=== PATIENT | female | born 1965 | race Caucasian/White ===

== ENCOUNTER 2020-11-12 16:39 | Inpatient (IN) ==
[2020-11-12] MEDS ORDERED: ACETAMINOPHEN 325 MG TABLET PO PRN (17:07)
[2020-11-12] MEDS ORDERED: HYDROmorphone 2 MG/1 ML VIAL ONE (17:31)
[2020-11-12] MEDS ORDERED: HYDROmorphone 2 MG/1 ML VIAL IV STA (17:38)
[2020-11-12] MEDS: DEXTROSE 5% NACL 0.45% 1,000 ML IV SCH (18:26)
[2020-11-12] MEDS: PIPERACILLIN/TAZOBACTAM 3,375 MG in SODIUM CHLORIDE 0.9% 100 ML IV SCH (18:30)
[2020-11-12] MEDS: ONDANSETRON 4 MG/2 ML VIAL IV PRN (22:39)
[2020-11-13] MEDS: PIPERACILLIN/TAZOBACTAM 3,375 MG in SODIUM CHLORIDE 0.9% 100 ML IV SCH ×3 (01:54→18:08)
[2020-11-13] MEDS: DEXTROSE 5% NACL 0.45% 1,000 ML IV SCH ×3 (01:55→18:46)
[2020-11-13 06:33] LABS: Basophils % 0.2 % (0.0-0.8); Eosinophils # 0.1 10*3/uL (0.0-0.87); Eosinophils % 0.5 % (0.00-10.9); Hematocrit 43.4 VOL% (35.7-47.0); Hemoglobin 14.3 GM/DL (12.0-16.0); Immature Granulocytes % 0.4 %; Immature Granulocytes Absolute 0.05 #; Lymphocytes # 0.9 10*3/uL (1.4-4.0); Lymphocytes % 7.8 % (21.3-54.2); Mean Corpuscular HGB Conc 32.9 GM/DL (32-36); Mean Corpuscular Volume 94.6 FL (87-102); Mean Platelet Volume 11.2 FL (9.6-12.0); Monocytes % 6.7 % (1.7-12.7); Neutrophils % 84.4 % (38.7-73.9); Platelet Count 286 T/CUMM (130-400); Red Blood Count 4.59 MC/CUMM (3.8-5.5); Red Cell Distribution Width 13.5 % (9.3-17.3); White Blood Count 11.2 T/CUMM (4-12)
[2020-11-13 06:45] LABS: Calcium 8.7 MG/DL (8.5-10.1); Osmolality,Calculated 271.2 MOS/KG (273-304); Potassium 3.5 MMOL/L (3.5-5.1)
[2020-11-13] MEDS: PANTOPRAZOLE 40 MG TABLET PO SCH (09:22)
[2020-11-13] MEDS: ONDANSETRON 4 MG/2 ML VIAL IV PRN ×2 (13:44→19:26)
[2020-11-13] MEDS: KETOROLAC 15 MG/1 ML VIAL IV SCH ×2 (14:12→20:15)
[2020-11-13] MEDS: HYDROmorphone 2 MG/1 ML VIAL IV PRN (14:13)
[2020-11-13 14:40] LABS: Bilirubin,Urine Negative (Negative); Blood, Urine Negative (Negative); Glucose,Urine (UA) Negative (Negative); Ketones,Urine Negative (Negative); Nitrite,Urine Negative (Negative); Protein,Urine 30 MG/DL; RBC,Urine <1 /HPF (0-4); Squamous Epithelial Cell,Urine Occasional /HPF (0-10); Urine Appearance Slightly Hazy (Clear); Urine Color Amber (Yellow); Urine Specific Gravity 1.033 (1.001-1.035)
[2020-11-14] MEDS: PIPERACILLIN/TAZOBACTAM 3,375 MG in SODIUM CHLORIDE 0.9% 100 ML IV SCH (01:40)
[2020-11-14] MEDS: DEXTROSE 5% NACL 0.45% 1,000 ML IV SCH (01:40)
[2020-11-14] MEDS: KETOROLAC 15 MG/1 ML VIAL IV SCH ×2 (01:40→08:06)
[2020-11-14 06:42] LABS: Basophils % 0.3 % (0.0-0.8); Eosinophils # 0.1 10*3/uL (0.0-0.87); Eosinophils % 0.9 % (0.00-10.9); Hemoglobin 12.7 GM/DL (12.0-16.0); Immature Granulocytes % 0.4 %; Immature Granulocytes Absolute 0.05 #; Lymphocytes # 0.9 10*3/uL (1.4-4.0); Lymphocytes % 7.4 % (21.3-54.2); Mean Corpuscular HGB Conc 32.6 GM/DL (32-36); Mean Corpuscular Volume 95.1 FL (87-102); Mean Platelet Volume 10.9 FL (9.6-12.0); Monocytes % 9.5 % (1.7-12.7); Neutrophils % 81.5 % (38.7-73.9); Platelet Count 252 T/CUMM (130-400); Red Cell Distribution Width 13.2 % (9.3-17.3); White Blood Count 11.9 T/CUMM (4-12)
[2020-11-14 07:12] LABS: Calcium 8.6 MG/DL (8.5-10.1); Osmolality,Calculated 269.2 MOS/KG (273-304); Potassium 3.5 MMOL/L (3.5-5.1)
[2020-11-14 07:29] LABS: Anisocytosis 1+; Band Neutrophils 17 % (0-10); Lymphocytes 7 % (20-55); Platelet Estimate Normal; Segmented Neutrophils 62 % (50-85); Total Cells Counted 100
[2020-11-14] MEDS: PANTOPRAZOLE 40 MG TABLET PO SCH (08:06)
[2020-11-14] MEDS ORDERED: CEFUROXIME 500 MG TABLET PO SCH (09:00)
[2020-11-14] MEDS: HYDROmorphone 2 MG/1 ML VIAL IV PRN (10:14)
[2020-11-14 11:25] VITALS: BP 108/65
== END 2020-11-14 13:30 | disposition home or self-care (01) | DRG 392 ==
LOC: EDUNIT# → EDBD → N.ED 16:39 → N.EDINP 17:07 → N.3E 18:32
PROVIDERS: ADMIT Surgery; ATTEND Surgery

== ENCOUNTER 2020-11-15 14:02 | Inpatient (IN) ==
[2020-11-15] MEDS ORDERED: ACETAMINOPHEN 325 MG TABLET PO PRN (16:35)
[2020-11-15] MEDS ORDERED: PROMETHAZINE 25 MG/1 ML VIAL IM PRN (16:35)
[2020-11-15 17:04] LABS: Basophils % 0.2 % (0.0-0.8); Eosinophils # 0.2 10*3/uL (0.0-0.87); Eosinophils % 1.9 % (0.00-10.9); Hematocrit 39.6 VOL% (35.7-47.0); Hemoglobin 13.1 GM/DL (12.0-16.0); Immature Granulocytes % 0.6 %; Immature Granulocytes Absolute 0.07 #; Lymphocytes # 1.4 10*3/uL (1.4-4.0); Lymphocytes % 12.4 % (21.3-54.2); Mean Corpuscular HGB Conc 33.1 GM/DL (32-36); Mean Corpuscular Volume 93.2 FL (87-102); Monocytes % 8.3 % (1.7-12.7); Neutrophils % 76.6 % (38.7-73.9); Platelet Count 319 T/CUMM (130-400); Red Blood Count 4.25 MC/CUMM (3.8-5.5); Red Cell Distribution Width 13.1 % (9.3-17.3); White Blood Count 10.9 T/CUMM (4-12)
[2020-11-15 17:20] LABS: Calcium 8.7 MG/DL (8.5-10.1); Osmolality,Calculated 275.5 MOS/KG (273-304); Potassium 3.1 MMOL/L (3.5-5.1)
[2020-11-15] MEDS: PANTOPRAZOLE 40 MG TABLET PO SCH (17:37)
[2020-11-15] MEDS: LACTATED RINGERS 1,000 ML IV SCH (17:38)
[2020-11-15] MEDS: KETOROLAC 15 MG/1 ML VIAL IV SCH ×2 (17:42→23:07)
[2020-11-15] MEDS: ERTAPENEM 1,000 MG in SODIUM CHLORIDE 0.9% 100 ML IV SCH (17:51)
[2020-11-15] MEDS: HYDROmorphone 2 MG/1 ML VIAL IV PRN (20:36)
[2020-11-15] MEDS: ONDANSETRON 4 MG/2 ML VIAL IV PRN (20:36)
[2020-11-15] MEDS: POTASSIUM CHLORIDE 20 MEQ TABLET PO PRN (23:06)
[2020-11-16] MEDS: POTASSIUM CHLORIDE 20 MEQ TABLET PO PRN ×3 (01:04→05:06)
[2020-11-16] MEDS: LACTATED RINGERS 1,000 ML IV SCH ×3 (01:06→16:12)
[2020-11-16] MEDS: KETOROLAC 15 MG/1 ML VIAL IV SCH ×4 (05:07→21:49)
[2020-11-16 05:48] LABS: Basophils % 0.3 % (0.0-0.8); Eosinophils # 0.4 10*3/uL (0.0-0.87); Eosinophils % 3.5 % (0.00-10.9); Hematocrit 39.4 VOL% (35.7-47.0); Hemoglobin 12.8 GM/DL (12.0-16.0); Immature Granulocytes % 0.8 %; Immature Granulocytes Absolute 0.09 #; Lymphocytes # 1.7 10*3/uL (1.4-4.0); Lymphocytes % 15.6 % (21.3-54.2); Mean Corpuscular HGB Conc 32.5 GM/DL (32-36); Mean Corpuscular Volume 93.8 FL (87-102); Mean Platelet Volume 10.5 FL (9.6-12.0); Monocytes % 9.4 % (1.7-12.7); Neutrophils % 70.4 % (38.7-73.9); Platelet Count 330 T/CUMM (130-400); Red Cell Distribution Width 13.2 % (9.3-17.3); White Blood Count 10.6 T/CUMM (4-12)
[2020-11-16 06:04] LABS: Calcium 8.9 MG/DL (8.5-10.1); Osmolality,Calculated 272.7 MOS/KG (273-304); Potassium 3.4 MMOL/L (3.5-5.1)
[2020-11-16] MEDS: PANTOPRAZOLE 40 MG TABLET PO SCH (08:53)
[2020-11-16] MEDS: ENOXAPARIN 40 MG/0.4 ML SYRINGE SUBCUT SCH (08:53)
[2020-11-16] MEDS: HYDROmorphone 2 MG/1 ML VIAL IV PRN ×4 (09:01→22:34)
[2020-11-16] MEDS: ONDANSETRON 4 MG/2 ML VIAL IV PRN ×2 (13:12→18:30)
[2020-11-16] MEDS: ERTAPENEM 1,000 MG in SODIUM CHLORIDE 0.9% 100 ML IV SCH (17:15)
[2020-11-16] MEDS ORDERED: BENZOCAINE 20% SPRAY 57 GM CAN TOP ONE (19:45)
[2020-11-16] MEDS: PHENOL 1.4% THROAT SPRAY 177 ML BOTTLE PO PRN (22:53)
[2020-11-17] MEDS: LACTATED RINGERS 1,000 ML IV SCH ×3 (02:24→19:34)
[2020-11-17] MEDS: HYDROmorphone 2 MG/1 ML VIAL IV PRN ×4 (02:24→19:33)
[2020-11-17] MEDS: KETOROLAC 15 MG/1 ML VIAL IV SCH ×4 (05:07→22:17)
[2020-11-17 05:18] LABS: Basophils % 0.4 % (0.0-0.8); Eosinophils # 0.3 10*3/uL (0.0-0.87); Eosinophils % 3.2 % (0.00-10.9); Hematocrit 38.1 VOL% (35.7-47.0); Hemoglobin 12.6 GM/DL (12.0-16.0); Immature Granulocytes % 1.1 %; Immature Granulocytes Absolute 0.11 #; Lymphocytes # 1.4 10*3/uL (1.4-4.0); Lymphocytes % 14.3 % (21.3-54.2); Mean Corpuscular HGB Conc 33.1 GM/DL (32-36); Mean Corpuscular Volume 93.2 FL (87-102); Mean Platelet Volume 9.9 FL (9.6-12.0); Platelet Count 334 T/CUMM (130-400); Red Blood Count 4.09 MC/CUMM (3.8-5.5); Red Cell Distribution Width 13.2 % (9.3-17.3); White Blood Count 9.8 T/CUMM (4-12)
[2020-11-17 05:49] LABS: Calcium 8.7 MG/DL (8.5-10.1); Osmolality,Calculated 273.5 MOS/KG (273-304); Potassium 3.4 MMOL/L (3.5-5.1)
[2020-11-17] MEDS: ENOXAPARIN 40 MG/0.4 ML SYRINGE SUBCUT SCH (09:12)
[2020-11-17] MEDS: PANTOPRAZOLE 40 MG TABLET PO SCH (09:12)
[2020-11-17] MEDS: ONDANSETRON 4 MG/2 ML VIAL IV PRN ×2 (09:49→16:19)
[2020-11-17] MEDS: ERTAPENEM 1,000 MG in SODIUM CHLORIDE 0.9% 100 ML IV SCH (17:45)
[2020-11-18] MEDS: LACTATED RINGERS 1,000 ML IV SCH ×5 (02:16→21:55)
[2020-11-18] MEDS: HYDROmorphone 2 MG/1 ML VIAL IV PRN ×4 (02:32→20:21)
[2020-11-18] MEDS: KETOROLAC 15 MG/1 ML VIAL IV SCH ×4 (04:01→22:44)
[2020-11-18] MEDS: ENOXAPARIN 40 MG/0.4 ML SYRINGE SUBCUT SCH (09:59)
[2020-11-18] MEDS: PANTOPRAZOLE 40 MG TABLET PO SCH (10:11)
[2020-11-18] MEDS: POLYETHYLENE GLYCOL POWDER 17 GM PACK PO SCH (12:51)
[2020-11-18] MEDS: ERTAPENEM 1,000 MG in SODIUM CHLORIDE 0.9% 100 ML IV SCH (17:28)
[2020-11-18] MEDS: ONDANSETRON 4 MG/2 ML VIAL IV PRN (20:26)
[2020-11-19] MEDS: HYDROmorphone 2 MG/1 ML VIAL IV PRN (03:18)
[2020-11-19] MEDS: ONDANSETRON 4 MG/2 ML VIAL IV PRN (03:19)
[2020-11-19] MEDS: KETOROLAC 15 MG/1 ML VIAL IV SCH ×4 (05:37→22:02)
[2020-11-19 05:56] LABS: Basophils % 0.3 % (0.0-0.8); Eosinophils # 0.3 10*3/uL (0.0-0.87); Eosinophils % 2.8 % (0.00-10.9); Hematocrit 37.5 VOL% (35.7-47.0); Hemoglobin 12.2 GM/DL (12.0-16.0); Immature Granulocytes % 1.4 %; Immature Granulocytes Absolute 0.13 #; Lymphocytes % 11.5 % (21.3-54.2); Mean Corpuscular HGB Conc 32.5 GM/DL (32-36); Mean Platelet Volume 9.8 FL (9.6-12.0); Monocytes % 6.1 % (1.7-12.7); Neutrophils % 77.9 % (38.7-73.9); Platelet Count 413 T/CUMM (130-400); Red Blood Count 3.99 MC/CUMM (3.8-5.5); Red Cell Distribution Width 12.8 % (9.3-17.3)
[2020-11-19 06:23] LABS: Calcium 8.4 MG/DL (8.5-10.1); Osmolality,Calculated 275.4 MOS/KG (273-304); Potassium 3.6 MMOL/L (3.5-5.1)
[2020-11-19] MEDS: ENOXAPARIN 40 MG/0.4 ML SYRINGE SUBCUT SCH (09:14)
[2020-11-19] MEDS: PANTOPRAZOLE 40 MG TABLET PO SCH (09:28)
[2020-11-19] MEDS: LACTATED RINGERS 1,000 ML IV SCH ×3 (13:25→22:01)
[2020-11-19] MEDS: POLYETHYLENE GLYCOL POWDER 17 GM PACK PO SCH (15:55)
[2020-11-19] MEDS: ERTAPENEM 1,000 MG in SODIUM CHLORIDE 0.9% 100 ML IV SCH (17:50)
[2020-11-20] MEDS: KETOROLAC 15 MG/1 ML VIAL IV SCH ×2 (04:39→10:58)
[2020-11-20] MEDS: LACTATED RINGERS 1,000 ML IV SCH ×3 (07:26→17:56)
[2020-11-20] MEDS: PANTOPRAZOLE 40 MG TABLET PO SCH (08:55)
[2020-11-20] MEDS: ENOXAPARIN 40 MG/0.4 ML SYRINGE SUBCUT SCH (08:56)
[2020-11-20] MEDS: POLYETHYLENE GLYCOL POWDER 17 GM PACK PO SCH (11:42)
[2020-11-20] MEDS: ERTAPENEM 1,000 MG in SODIUM CHLORIDE 0.9% 100 ML IV SCH (17:27)
[2020-11-21] MEDS: LACTATED RINGERS 1,000 ML IV SCH ×2 (00:05→07:50)
[2020-11-21] MEDS: PANTOPRAZOLE 40 MG TABLET PO SCH (08:11)
[2020-11-21] MEDS: POLYETHYLENE GLYCOL POWDER 17 GM PACK PO SCH (08:11)
[2020-11-21] MEDS: ENOXAPARIN 40 MG/0.4 ML SYRINGE SUBCUT SCH (08:11)
[2020-11-21] MEDS: DEXT 5% NACL 0.45% KCL 40 MEQ 40 MEQ/1,000 ML BAG IV SCH ×3 (12:09→20:52)
[2020-11-21] MEDS: ERTAPENEM 1,000 MG in SODIUM CHLORIDE 0.9% 100 ML IV SCH (17:06)
[2020-11-22] MEDS: DEXT 5% NACL 0.45% KCL 40 MEQ 40 MEQ/1,000 ML BAG IV SCH ×4 (04:09→21:22)
[2020-11-22 05:19] LABS: Basophils # 0.1 10*3/uL (0.0-0.2); Basophils % 0.5 % (0.0-0.8); Eosinophils # 0.4 10*3/uL (0.0-0.87); Eosinophils % 3.9 % (0.00-10.9); Hematocrit 40.6 VOL% (35.7-47.0); Hemoglobin 13.5 GM/DL (12.0-16.0); Immature Granulocytes % 0.8 %; Immature Granulocytes Absolute 0.09 #; Lymphocytes # 1.4 10*3/uL (1.4-4.0); Lymphocytes % 12.7 % (21.3-54.2); Mean Corpuscular HGB Conc 33.3 GM/DL (32-36); Mean Corpuscular Volume 90.6 FL (87-102); Mean Platelet Volume 9.6 FL (9.6-12.0); Monocytes % 6.1 % (1.7-12.7); Platelet Count 442 T/CUMM (130-400); Red Blood Count 4.48 MC/CUMM (3.8-5.5); Red Cell Distribution Width 12.9 % (9.3-17.3)
[2020-11-22 05:32] LABS: Calcium 8.4 MG/DL (8.5-10.1); Osmolality,Calculated 277.4 MOS/KG (273-304); Potassium 3.4 MMOL/L (3.5-5.1)
[2020-11-22] MEDS: PANTOPRAZOLE 40 MG TABLET PO SCH (08:30)
[2020-11-22] MEDS: POLYETHYLENE GLYCOL POWDER 17 GM PACK PO SCH (08:30)
[2020-11-22] MEDS: ENOXAPARIN 40 MG/0.4 ML SYRINGE SUBCUT SCH (08:30)
[2020-11-22] MEDS: ERTAPENEM 1,000 MG in SODIUM CHLORIDE 0.9% 100 ML IV SCH (17:32)
[2020-11-23] MEDS: DEXT 5% NACL 0.45% KCL 40 MEQ 40 MEQ/1,000 ML BAG IV SCH ×2 (05:26→18:07)
[2020-11-23] MEDS: POLYETHYLENE GLYCOL POWDER 17 GM PACK PO SCH (08:42)
[2020-11-23] MEDS: PANTOPRAZOLE 40 MG TABLET PO SCH (08:42)
[2020-11-23] MEDS: ENOXAPARIN 40 MG/0.4 ML SYRINGE SUBCUT SCH (09:30)
[2020-11-23 10:06] LABS: INR 1.1; PT Patient Result 12.3 SECS (10.5-12.0)
[2020-11-23] MEDS: FAT EMULSION 20% 250 ML IV SCH (14:39)
[2020-11-23] MEDS: HYDROmorphone 2 MG/1 ML VIAL IV PRN ×2 (15:10→20:45)
[2020-11-23] MEDS: ONDANSETRON 4 MG/2 ML VIAL IV PRN ×2 (15:11→20:53)
[2020-11-23] MEDS: LACTATED RINGERS 1,000 ML IV SCH (16:59)
[2020-11-23] MEDS ORDERED: ZINC/COPPER/MANGANESE/SELENIUM 1 ML, MULTIVITAMIN INJ 10 ML in AMINO ACIDS/DEXT/LYTES 5... IV SCH (17:00)
[2020-11-23] MEDS: ERTAPENEM 1,000 MG in SODIUM CHLORIDE 0.9% 100 ML IV SCH (18:36)
[2020-11-24] MEDS: LACTATED RINGERS 1,000 ML IV SCH ×2 (04:06→15:13)
[2020-11-24] MEDS: HYDROmorphone 2 MG/1 ML VIAL IV PRN ×3 (07:24→20:32)
[2020-11-24] MEDS: ONDANSETRON 4 MG/2 ML VIAL IV PRN ×3 (07:30→20:32)
[2020-11-24 08:06] LABS: Calcium 8.7 MG/DL (8.5-10.1); Osmolality,Calculated 278.4 MOS/KG (273-304); Potassium 3.7 MMOL/L (3.5-5.1)
[2020-11-24] MEDS: ENOXAPARIN 40 MG/0.4 ML SYRINGE SUBCUT SCH (10:27)
[2020-11-24] MEDS: POLYETHYLENE GLYCOL POWDER 17 GM PACK PO SCH (10:29)
[2020-11-24] MEDS: PANTOPRAZOLE 40 MG TABLET PO SCH (10:30)
[2020-11-24] MEDS: PHENOL 1.4% THROAT SPRAY 177 ML BOTTLE PO PRN (14:31)
[2020-11-24] MEDS: ZINC/COPPER/MANGANESE/SELENIUM 1 ML, MULTIVITAMIN INJ 10 ML in AMINO ACIDS/DEXT/LYTES 5... IV SCH (16:49)
[2020-11-24] MEDS: ERTAPENEM 1,000 MG in SODIUM CHLORIDE 0.9% 100 ML IV SCH (18:25)
[2020-11-25] MEDS: LACTATED RINGERS 1,000 ML IV SCH (03:38)
[2020-11-25] MEDS: ONDANSETRON 4 MG/2 ML VIAL IV PRN (03:39)
[2020-11-25] MEDS: HYDROmorphone 2 MG/1 ML VIAL IV PRN (03:40)
[2020-11-25 06:29] LABS: Basophils % 0.5 % (0.0-0.8); Eosinophils # 0.4 10*3/uL (0.0-0.87); Eosinophils % 4.7 % (0.00-10.9); Hematocrit 39.6 VOL% (35.7-47.0); Hemoglobin 12.4 GM/DL (12.0-16.0); Immature Granulocytes % 0.5 %; Immature Granulocytes Absolute 0.04 #; Lymphocytes # 1.2 10*3/uL (1.4-4.0); Lymphocytes % 16.2 % (21.3-54.2); Mean Corpuscular HGB Conc 31.3 GM/DL (32-36); Mean Corpuscular Volume 96.4 FL (87-102); Mean Platelet Volume 10.8 FL (9.6-12.0); Monocytes % 7.3 % (1.7-12.7); Neutrophils % 70.8 % (38.7-73.9); Platelet Count 386 T/CUMM (130-400); Red Blood Count 4.11 MC/CUMM (3.8-5.5); Red Cell Distribution Width 13.2 % (9.3-17.3); White Blood Count 7.6 T/CUMM (4-12)
[2020-11-25 06:47] LABS: Calcium 8.8 MG/DL (8.5-10.1); Osmolality,Calculated 281.3 MOS/KG (273-304); Potassium 3.8 MMOL/L (3.5-5.1)
[2020-11-25] MEDS: ENOXAPARIN 40 MG/0.4 ML SYRINGE SUBCUT SCH (09:13)
[2020-11-25] MEDS: POLYETHYLENE GLYCOL POWDER 17 GM PACK PO SCH (09:18)
[2020-11-25] MEDS: PANTOPRAZOLE 40 MG TABLET PO SCH (09:18)
[2020-11-25] MEDS: FAT EMULSION 20% 250 ML IV SCH (15:26)
[2020-11-25] MEDS: ERTAPENEM 1,000 MG in SODIUM CHLORIDE 0.9% 100 ML IV SCH (19:08)
[2020-11-25] MEDS: ZINC/COPPER/MANGANESE/SELENIUM 1 ML, MULTIVITAMIN INJ 10 ML in AMINO ACIDS/DEXT/LYTES 5... IV SCH (19:09)
[2020-11-26 08:54] VITALS: BP 110/67
[2020-11-26] MEDS: ENOXAPARIN 40 MG/0.4 ML SYRINGE SUBCUT SCH (09:52)
[2020-11-26] MEDS: POLYETHYLENE GLYCOL POWDER 17 GM PACK PO SCH (09:52)
[2020-11-26] MEDS: PANTOPRAZOLE 40 MG TABLET PO SCH (09:52)
== END 2020-11-26 12:30 | disposition home or self-care (01) | DRG 392 ==
LOC: N.3E 16:14
PROVIDERS: ADMIT Surgery; ATTEND Surgery

== ENCOUNTER 2020-12-27 06:28 | Inpatient (IN) ==
[2020-12-22 12:51] LABS: Basophils % 0.4 % (0.0-0.8); Eosinophils # 0.2 10*3/uL (0.0-0.87); Eosinophils % 3.3 % (0.00-10.9); Hematocrit 39.6 VOL% (35.7-47.0); Hemoglobin 13.1 GM/DL (12.0-16.0); Immature Granulocytes % 0.3 %; Immature Granulocytes Absolute 0.02 #; Lymphocytes % 27.2 % (21.3-54.2); Mean Corpuscular HGB Conc 33.1 GM/DL (32-36); Mean Corpuscular Volume 90.8 FL (87-102); Mean Platelet Volume 11.3 FL (9.6-12.0); Monocytes % 8.4 % (1.7-12.7); Neutrophils % 60.4 % (38.7-73.9); Platelet Count 299 T/CUMM (130-400); Red Blood Count 4.36 MC/CUMM (3.8-5.5); Red Cell Distribution Width 13.3 % (9.3-17.3); White Blood Count 7.3 T/CUMM (4-12)
[2020-12-22 13:06] LABS: Calcium 9.5 MG/DL (8.5-10.1); Osmolality,Calculated 274.4 MOS/KG (273-304); Potassium 3.9 MMOL/L (3.5-5.1)
[~2020-12-27 06:28] MED LIST: ALVIMOPAN 12 MG CAPSULE PO ONE; ERTAPENEM 1,000 MG in SODIUM CHLORIDE 0.9% 100 ML IV ONE; LACTATED RINGERS 1,000 ML IV SCH
[2020-12-27] MEDS ORDERED: DIAZEPAM 5 MG TABLET PO ONE (09:05)
[2020-12-27] MEDS ORDERED: FAMOTIDINE 20 MG TABLET PO ONE (09:05)
[2020-12-27] MEDS ORDERED: ACETAMINOPHEN 500 MG TABLET PO ONE (09:05)
[2020-12-27] MEDS ORDERED: ALVIMOPAN 12 MG CAPSULE ONE (09:11)
[2020-12-27] MEDS ORDERED: ERTAPENEM 1,000 MG VIAL ONE (09:11)
[2020-12-27] MEDS ORDERED: ROPIVACAINE 0.5% 30 ML VIAL ONE (09:34)
[2020-12-27] MEDS ORDERED: DEXAMETHASONE 4 MG/1 ML VIAL ONE ×2 (09:34)
[2020-12-27] MEDS ORDERED: MIDAZOLAM 2 MG/2 ML VIAL ONE (09:41)
[2020-12-27] MEDS ORDERED: fentaNYL 100 MCG/2 ML VIAL ONE ×3 (09:41→12:13)
[2020-12-27] MEDS ORDERED: INDOCYANINE GREEN 25 MG VIAL IV ONE ×2 (10:01→10:27)
[2020-12-27] MEDS ORDERED: ROCURONIUM 50 MG/5 ML VIAL IV ONE ×2 (10:21→12:08)
[2020-12-27] MEDS ORDERED: LIDOCAINE 2% 5 ML VIAL ONE (10:21)
[2020-12-27] MEDS ORDERED: ONDANSETRON 4 MG/2 ML VIAL ONE (10:21)
[2020-12-27] MEDS ORDERED: propofoL 200 MG/20 ML VIAL IV ONE (10:21)
[2020-12-27] MEDS ORDERED: PHENYLEPHRINE 1 MG/10 ML SYRINGE IV ONE (11:33)
[2020-12-27] MEDS ORDERED: ALBUTEROL INHALER 18 GM INH ONE (11:49)
[2020-12-27] MEDS ORDERED: ePHEDrine 50 MG/ML VIAL ONE (11:54)
[2020-12-27] MEDS ORDERED: SEVOFLURANE 1 UNIT/15 MINUTE INH ONE (12:26)
[2020-12-27] MEDS ORDERED: LACTATED RINGERS 1,000 ML IV ONE (13:16)
[2020-12-27] MEDS ORDERED: LABETALOL 20 MG/4 ML SYRINGE IV ONE (13:16)
[2020-12-27] MEDS ORDERED: NEOSTIGMINE 10 MG/10 ML VIAL ONE (14:57)
[2020-12-27] MEDS ORDERED: GLYCOPYRROLATE 0.4 MG/2 ML VIAL ONE (14:57)
[2020-12-27] MEDS ORDERED: TISSUE ADHESIVE 1 EACH APPLICATOR TOP ONE (15:10)
[2020-12-27] MEDS ORDERED: ONDANSETRON 4 MG/2 ML VIAL IV PRN ×2 (15:55→17:23)
[2020-12-27] MEDS: HYDROmorphone 2 MG/1 ML VIAL IV PRN ×3 (15:56→16:25)
[2020-12-27] MEDS ORDERED: GLUCAGON 1 MG VIAL IM PRN (17:23)
[2020-12-27] MEDS ORDERED: DEXTROSE 50% 25 GM/50 ML VIAL IV PRN (17:23)
[2020-12-27] MEDS ORDERED: IBUPROFEN 400 MG TABLET PO PRN (17:23)
[2020-12-27] MEDS: LACTATED RINGERS 1,000 ML IV SCH (17:55)
[2020-12-27 18:10] LABS: Basophils % 0.1 % (0.0-0.8); Hematocrit 41.9 VOL% (35.7-47.0); Hemoglobin 13.4 GM/DL (12.0-16.0); Immature Granulocytes % 0.5 %; Immature Granulocytes Absolute 0.07 #; Lymphocytes # 0.6 10*3/uL (1.4-4.0); Mean Corpuscular Volume 93.7 FL (87-102); Mean Platelet Volume 9.8 FL (9.6-12.0); Neutrophils % 93.4 % (38.7-73.9); Platelet Count 333 T/CUMM (130-400); Red Blood Count 4.47 MC/CUMM (3.8-5.5); Red Cell Distribution Width 13.5 % (9.3-17.3); White Blood Count 15.1 T/CUMM (4-12)
[2020-12-27] MEDS: INSULIN REGULAR 100 UNIT/ML SUBCUT SCH ×2 (18:19→21:55)
[2020-12-27] MEDS: KETOROLAC 30 MG/1 ML VIAL IV SCH ×2 (18:20→23:19)
[2020-12-27 18:28] LABS: Calcium 8.5 MG/DL (8.5-10.1); Osmolality,Calculated 281.4 MOS/KG (273-304); Potassium 3.7 MMOL/L (3.5-5.1)
[2020-12-27 19:23] LABS: Lymphocytes 7 % (20-55); Segmented Neutrophils 93 % (50-85); Total Cells Counted 100
[2020-12-27 19:24] LABS: Atypical Lymphocytes Few; Platelet Estimate Normal
[2020-12-27] MEDS: ALVIMOPAN 12 MG CAPSULE PO SCH (21:49)
[2020-12-28] MEDS: HYDROmorphone 2 MG/1 ML VIAL IV PRN ×2 (01:54→08:03)
[2020-12-28] MEDS: LACTATED RINGERS 1,000 ML IV SCH (03:29)
[2020-12-28] MEDS: KETOROLAC 30 MG/1 ML VIAL IV SCH ×2 (04:23→12:40)
[2020-12-28 05:53] LABS: Calcium 8.4 MG/DL (8.5-10.1); Osmolality,Calculated 281.1 MOS/KG (273-304)
[2020-12-28 06:13] LABS: Basophils % 0.1 % (0.0-0.8); Hematocrit 36.2 VOL% (35.7-47.0); Hemoglobin 11.6 GM/DL (12.0-16.0); Immature Granulocytes % 0.4 %; Immature Granulocytes Absolute 0.05 #; Lymphocytes # 1.6 10*3/uL (1.4-4.0); Lymphocytes % 11.7 % (21.3-54.2); Mean Corpuscular Volume 93.1 FL (87-102); Mean Platelet Volume 10.1 FL (9.6-12.0); Monocytes % 6.9 % (1.7-12.7); Neutrophils % 80.9 % (38.7-73.9); Platelet Count 271 T/CUMM (130-400); Red Blood Count 3.89 MC/CUMM (3.8-5.5); Red Cell Distribution Width 13.8 % (9.3-17.3)
[2020-12-28] MEDS: ALVIMOPAN 12 MG CAPSULE PO SCH (08:04)
[2020-12-28] MEDS: INSULIN REGULAR 100 UNIT/ML SUBCUT SCH ×2 (08:04→12:40)
[2020-12-28] MEDS ORDERED: ENOXAPARIN 40 MG/0.4 ML SYRINGE SUBCUT SCH (09:30)
[2020-12-28 12:28] VITALS: BP 121/60
== END 2020-12-28 12:46 | disposition home or self-care (01) | DRG 331 ==
LOC: N.OR 06:28 → N.SDSINP 06:30 → N.TELEN 15:15
PROVIDERS: ADMIT Surgery; ATTEND Surgery